=== PATIENT | female | born 1980 | race African-American/Black ===

== ENCOUNTER 2017-05-16 18:09 | Emergency (ER) | payer MEDICAID ==
[~2017-05-16] VITALS: Ht 154.9 cm; Wt 72.6 kg
[2017-05-16 18:23] VITALS: BP 123/86
== END 2017-05-16 20:26 | disposition home or self-care (01) ==
LOC: ER 18:19
DX: R20.0 Anesthesia of skin (principal)

== ENCOUNTER 2022-10-30 14:13 | Emergency (ER) | payer MEDICAID ==
[~2022-10-30] VITALS: Ht 157.5 cm; Wt 71.8 kg
[2022-10-30 14:37] VITALS: BP 133/89
[2022-10-30] MEDS ORDERED: KETOROLAC TROMETH 60MG/2ML VIAL IM ONE (14:45)
[2022-10-30 15:55] LABS: Urine Bacteria MANY /hpf (None Seen); Urine Blood Negative /uL (Negative); Urine Specific Gravity 1.006 (1.001-1.035); Urine WBC 2 /hpf (0 - 5)
[2022-10-30] MEDS ORDERED: HYDR-4902 PO (16:19)
[2022-10-30] MEDS ORDERED: IBUP800T26 PO (16:19)
== END 2022-10-30 16:31 | disposition home or self-care (01) ==
LOC: ER 14:15
DX: M54.9 Dorsalgia, unspecified (principal); W01.0XXA Fall on same level from slipping, tripping and stumbling without subsequent striking against object, initial encounter; Y93.89 Activity, other specified; Y92.89 Other specified places as the place of occurrence of the external cause; Y99.8 Other external cause status
CPT/HCPCS: 72070; 81001; 96372; 99284; J1885